=== PATIENT | female | born 1965 | race Caucasian/White ===

== ENCOUNTER → 2016-08-08 | Outpatient (CLI) | payer OTHER, BC ==
[~2016-08-08] MED LIST: ACET325T96 PO; B-COTAB18 PO; BIOT1TAB2 PO; DICL0.1S OPL; OFLO0.3S OP; OXYC-57 PO; TURM1CAP4 PO
== END | disposition home or self-care (01) ==
LOC: C.PAPS 13:52
PROVIDERS: ATTEND Obstetrics & Gynecology
DX: R87.611 Atypical squamous cells cannot exclude high grade squamous intraepithelial lesion on cytologic smear of cervix (ASC-H) (principal)

== ENCOUNTER → 2016-10-23 | Day surgery (SDC) | payer OTHER, BC ==
[~2016-10-23] VITALS: Ht 172.7 cm; Wt 61.4 kg
[~2016-10-23] MED LIST changes: +LIDOCAINE HCL 2% 2 ML VIAL (20MG/ML) ONE; +PROPOFOL IV EMULSION 10 MG/ML 20 ML VIAL IV ONE; +SODIUM CHLORIDE 0.9% 500ML 500 ML IV ONE
[2016-10-23 09:42] VITALS: Ht 172.7 cm; Wt 61.4 kg
--- NOTE | 2016-10-23 10:16 | Endo History and Physical ---
History & Physical Date of Service: Oct 23, 2016. Chief Complaint: screening Referring Physician: Dr. Cordoba History of Present Illness 51 yo CF who presents for screening colonoscopy. Past Surgical History Hx Cardiac Surgery: No Hx Internal Defibrillator: No Hx Pacemaker: No Hx Abdominal Surgery: Yes (CONIZATION) Hx of Implantable Prosthesis: No Hx Post-Op Nausea and Vomiting: Yes (REQUESTS TO BE GIVEN PHENERGAN) Hx Cancer Surgery: No Hx Thoracic Surgery: No Hx Orthopedic: Yes (RT WRIST REPAIR) Hx Urinary Tract Surgery: No Family History Colon CA, Polyp Social History Smoking Status: Never Smoker Hx Substance Use: No Hx Alcohol Use: No Allergies Coded Allergies: Codeine (Verified Adverse Reaction, Intermediate, GI SYMPTOMS, 10/23/16) Current Medications Reported Home Medications Medications Dose Route/Sig Max Daily Dose Days Date Category Biotin 5 Mg Tab 1 Tab PO QPM 10/11/16 Reported Turmeric (Turmeric (Curcuma Longa)) 500 Mg Cap 1 Cap PO QPM 10/11/16 Reported Vitamin B Complex (B-Complex Vitamins) 1 Tab Tab 1 Tab PO QPM 10/11/16 Reported Vital Signs Weight (Kilograms): 61.36 Height (Feet): 5 Height (Inches): 8 Date Time Temp Pulse Resp B/P (MAP) Pulse Ox O2 Delivery O2 Flow Rate FiO2 10/23/16 09:52 36.7 84 20 117/83 (94) 100 Room Air Physical Exam General Appearance: WD/WN, no apparent distress Respiratory/Chest: Auscultation: breath sounds normal Cardiovascular: Heart Auscultation: RRR Abdomen: Bowel Sounds: normal Inspection & Palpation: soft, non-distended, no tenderness, guarding & rebound Assessment and Plan Assessment: 51 yo CF who presents for screening colonoscopy. Plan: Proceed with colonoscopy.
--- NOTE | 2016-10-23 10:43 | Discharge Instructions ---
Endoscopy Patient Instructions Date / Procedure(s) Performed Oct 23, 2016. Colonoscopy Allergy Information Coded Allergies: Codeine (Verified Adverse Reaction, Intermediate, GI SYMPTOMS, 10/23/16) Discharge Date / Findings Oct 23, 2016. Rectal polyp Internal hemorrhoids Medication Instructions Reported Home Medications Medications Dose Route/Sig Max Daily Dose Days Date Category Biotin 5 Mg Tab 1 Tab PO QPM 10/11/16 Reported Turmeric (Turmeric (Curcuma Longa)) 500 Mg Cap 1 Cap PO QPM 10/11/16 Reported Vitamin B Complex (B-Complex Vitamins) 1 Tab Tab 1 Tab PO QPM 10/11/16 Reported Provider Instructions Activity Restrictions - No exercising or heavy lifting for 24 hours. - Do not drink alcohol the day of the procedure. - Do not drive a car or operate machinery until the day after the procedure. - Do not make any important decisions or sign important papers in 24 hours after the procedure. Following Day: - Return to full activity which may include returning to work/school. Diet Start your diet with liquids and light foods (jello, soup, juice, toast). Then eat your usual diet if not nauseated. Treatment For Common After Affects For mild abdominal pain, bloating, or excessive gas: - Rest - Eat lightly - Lie on right side Follow-Up Information Follow-up with Dr. Cordoba as scheduled Anesthesia Information What You Should Know You have had a procedure that required some medicine to reduce anxiety and discomfort. This treatment is called moderate sedation. After receiving the treatment, you may be sleepy, but you will be able to breathe on your own. The effects of the treatment may last for several hours. Follow these instructions along with Activity/Diet recommendations noted above: * Do NOT do anything where dizziness or clumsiness would be dangerous. * Rest quietly at home today, then you can be up and about tomorrow. * Have a responsible person stay with you the rest of today. * You may have had an I.V. today. If so, you may take the dressing off later today. Recommendations Call your doctor if: * Trouble breathing * Continuous vomiting for more than 24 hours * Temperature above 101 degrees * Severe abdominal pain or bloating * Pain not relieved by pain medicine ordered * There is increased drainage or redness from any incision * A large amount of rectal bleeding greater than 2-3 tablespoons. (If you had a polyp/s removed or have hemorrhoids, a small amount of blood - from the rectum is to be expected.) * You have any unanswered questions or concerns. IN THE EVENT OF A SERIOUS EMERGENCY, GO TO THE NEAREST EMERGENCY ROOM Your discharge instructions were prepared by provider Miquel Alexander. Patient Instructions Signature Page Dayna Norris Patient (or Guardian) Signature/Date: I have read and understand the instructions given to me by my caregivers. Caregiver/RN/Doctor Signature/Date: The above-named patient and/or guardian has received patient instructions on this date. + Original Patient Signature Page (only) stays with chart. Please make copy for patient.
--- NOTE | 2016-10-23 10:55 | GI REPORT ---
Procedure Date: 10/23/2016 9:56 AM Procedure: Colonoscopy Indications: Screening for colorectal malignant neoplasm Medicines: Monitored Anesthesia Care Complications: No immediate complications. Estimated Blood Loss: Estimated blood loss: none. Procedure: Pre-Anesthesia Assessment: - Prior to the procedure, a History and Physical was performed, and patient medications and allergies were reviewed. The patient's tolerance of previous anesthesia was also reviewed. The risks and benefits of the procedure and the sedation options and risks were discussed with the patient. All questions were answered, and informed consent was obtained. Prior Anticoagulants: The patient has taken no previous anticoagulant or antiplatelet agents. ASA Grade Assessment: II - A patient with mild systemic disease. After reviewing the risks and benefits, the patient was deemed in satisfactory condition to undergo the procedure. After I obtained informed consent, the scope was passed under direct vision. Throughout the procedure, the patient's blood pressure, pulse, and oxygen saturations were monitored continuously. The scope was introduced through the anus and advanced to the terminal ileum. The colonoscopy was performed without difficulty. The patient tolerated the procedure well. The quality of the bowel preparation was good. The terminal ileum, ileocecal valve, appendiceal orifice, and rectum were photographed. Findings: A 10 mm polyp was found in the rectum. The polyp was sessile. The polyp was removed with a hot snare. Resection and retrieval were complete. Non-bleeding internal hemorrhoids were found during retroflexion. The hemorrhoids were small. Impression: - One 10 mm polyp in the rectum, removed with a hot snare. Resected and retrieved. - Non-bleeding internal hemorrhoids. Recommendation: - Resume previous diet. - Continue present medications. - Repeat colonoscopy for surveillance based on pathology results. - Return to primary care physician as previously scheduled. Miquel Alexander DO 10/23/2016 10:54:56 AM This report has been signed electronically. Note Initiated On: 10/23/2016 9:56 AM I attest to the content of the Intraoperative Record and orders documented therein, exceptions below
--- NOTE | 2016-10-23 11:13 | Anesthesiology Progress Note ---
Anesthesia Post Op Note Date & Time Oct 23, 2016 at 11:12 Vital Signs Pain Intensity: 0 Vital Signs Past 12 Hours Date Time Temp Pulse Resp B/P (MAP) Pulse Ox O2 Delivery O2 Flow Rate FiO2 10/23/16 11:02 70 20 112/80 (91) 100 Room Air 10/23/16 10:47 73 20 106/71 (83) 97 Room Air 10/23/16 09:52 36.7 84 20 117/83 (94) 100 Room Air Notes Mental Status: alert / awake / arousable, participated in evaluation Pt Amnestic to Procedure: Yes Nausea / Vomiting: adequately controlled Pain: adequately controlled Airway Patency, RR, SpO2: stable & adequate BP & HR: stable & adequate Hydration State: stable & adequate Anesthetic Complications: no major complications apparent
[2016-10-23 11:17] VITALS: BP 110/84; PULSE 76; O2SAT 100
== END | disposition home or self-care (01) ==
LOC: C.GI 08:40
PROVIDERS: ATTEND Internal Medicine
DX: Z12.11 Encounter for screening for malignant neoplasm of colon (principal); D12.8 Benign neoplasm of rectum; K64.8 Other hemorrhoids; Z80.0 Family history of malignant neoplasm of digestive organs

== ENCOUNTER → 2016-10-26 | Outpatient (CLI) | payer OTHER, BC ==
[~2016-10-26] MED LIST changes: -LIDOCAINE HCL 2% 2 ML VIAL (20MG/ML) ONE; -PROPOFOL IV EMULSION 10 MG/ML 20 ML VIAL IV ONE; -SODIUM CHLORIDE 0.9% 500ML 500 ML IV ONE
== END | disposition home or self-care (01) ==
LOC: C.PATHSPEC 13:11
PROVIDERS: ATTEND Obstetrics & Gynecology
DX: R87.613 High grade squamous intraepithelial lesion on cytologic smear of cervix (HGSIL) (principal)

== ENCOUNTER 2016-11-10 05:16 | Observation (INO) | payer OTHER, BC ==
--- NOTE | 2016-10-26 11:53 | PAT Medication Instructions ---
Service Date Oct 26, 2016. Current Home Medication List Acetaminophen Tab (Tylenol), 325-650 MG PO PRN B-Complex Vitamins (Vitamin B Complex), 1 TAB PO QPM Biotin (Biotin), 1 TAB PO QPM Turmeric (Curcuma Longa) (Turmeric), 1 CAP PO QPM Medication Instructions For Your Scheduled Surgery - Hold the following medications 2 weeks prior to surgery: Biotin (Biotin), 1 TAB PO QPM Turmeric (Curcuma Longa) (Turmeric), 1 CAP PO QPM - Take the following medications the morning of surgery with a sip of water OTHERWISE NOTHING TO EAT OR DRINK AFTER MIDNIGHT: Acetaminophen Tab (Tylenol), 325-650 MG PO PRN (may take if needed up to 4 hours prior to surgery) - Take the following medications as scheduled the night before surgery: B-Complex Vitamins (Vitamin B Complex), 1 TAB PO QPM Acetaminophen Tab (Tylenol), 325-650 MG PO PRN If you have any questions please call us at [phone] or [phone] or [phone]
[2016-10-26 12:29] LABS: BASO % 0.3 %; BASO ABS # 0.02 K/uL (0-0.2); COMPLETE YES; EOS % 1.3 %; HEMATOCRIT 37.5 % (37-47); IG% 0.3 %; LYMPH % 24.7 %; LYMPH ABS # 1.51 K/uL (1.2-3.4); MEAN CELL VOLUME 86.2 fL (80-100); MEAN CORPUSCULAR HEMOGLOBIN 29.7 pg (25-34); MEAN CORPUSCULAR HGB CONC 34.4 g/dl (32-36); MEAN PLATELET VOLUME 9.5 fL (7.4-10.4); MONO % 6.2 %; NEUT % 67.2 %; PLATELET COUNT 267 K/uL (130-400); RED BLOOD COUNT 4.35 M/uL (4.2-5.4); WHITE BLOOD COUNT 6.12 K/uL (4.8-10.8)
[2016-11-10] VITALS (8 sets, daily range): BP systolic 122–149; BP diastolic 78–84; PULSE 60–78; TEMP 36.4–36.8; O2SAT 97–100; Ht 172.7 cm; Wt 61.9 kg
[~2016-11-10] VITALS: Ht 172.7 cm; Wt 61.9 kg
[~2016-11-10 05:16] MED LIST changes: -DICL0.1S OPL; -OFLO0.3S OP; -OXYC-57 PO
[2016-11-10] MEDS ORDERED: CEFAZOLIN 2000 MG/60 ML D5W 50 ML IV SCH (06:00)
[2016-11-10] MEDS ORDERED: LACTATED RINGER'S 1000ML 1,000 ML IV SCH ×3 (06:00→09:30)
[2016-11-10] MEDS ORDERED: SCOPOLAMINE 1.5 MG TDSY TD ONE ×2 (06:48→07:00)
[2016-11-10] MEDS ORDERED: METHYLENE BLUE 0.5% 10 ML VIAL ONE (06:57)
[2016-11-10] MEDS ORDERED: BUPIVACAINE 0.5 % 5 MG/1 ML MPF 30ML VIAL ONE (06:57)
[2016-11-10] MEDS ORDERED: ONDANSETRON INJ 2 MG/ML 2 ML VIAL IV PRN ×2 (07:00→09:30)
[2016-11-10] MEDS ORDERED: EpHEDrine SULFATE INJ 50 MG/ML AMP IV PRN (07:00)
[2016-11-10] MEDS ORDERED: FENTANYL CITRATE INJ 50 MCG/1 ML 2 ML VIAL IV PRN (07:00)
[2016-11-10] MEDS ORDERED: ATROPINE SULFATE 0.1 MG/ML 5ML SYR IV PRN (07:00)
[2016-11-10] MEDS ORDERED: DEXAMETHASONE SOD INJ 4 MG/ML VIAL ONE (07:12)
[2016-11-10] MEDS ORDERED: PHENYLEPHRINE HCL INJ 10 MG/ML VIAL ONE (07:12)
[2016-11-10] MEDS ORDERED: PROPOFOL IV EMULSION 10 MG/ML 20 ML VIAL IV ONE (07:12)
[2016-11-10] MEDS ORDERED: ROCURONIUM BROMIDE 10 MG/ML 5 ML VIAL IV ONE (07:12)
[2016-11-10] MEDS ORDERED: NEOSTIGMINE METHYLSULFATE 5 MG/5 ML SYR ONE (07:12)
[2016-11-10] MEDS ORDERED: GLYCOPYRROLATE INJ 0.2 MG/ML VIAL ONE (07:12)
[2016-11-10] MEDS ORDERED: EpHEDrine SULFATE INJ 50 MG/ML AMP ONE (07:12)
[2016-11-10] MEDS ORDERED: ONDANSETRON INJ 2 MG/ML 2 ML VIAL ONE ×2 (07:12→09:09)
[2016-11-10] MEDS ORDERED: SUCCINYLCHOLINE CHLORIDE 20 MG/ML 10 ML VIAL IV ONE (07:12)
[2016-11-10] MEDS ORDERED: LIDOCAINE HCL 2% 2 ML VIAL (20MG/ML) ONE (07:12)
[2016-11-10] MEDS ORDERED: FENTANYL CITRATE INJ 50 MCG/1 ML 2 ML VIAL ONE ×2 (07:13→09:00)
[2016-11-10] MEDS ORDERED: MIDAZOLAM HCL 1 MG/ML 2ML VIAL ONE (07:13)
--- NOTE | 2016-11-10 07:16 | History & Physical Bridge Note ---
H&P Re-Evaluation Bridge Note: I have examined the patient, reviewed the History & Physical and in the interval since the performance of the History & Physical I have noted the following changes of clinical significance: Patient has considered her options and wants removal of both ovaries as well. She does not want to initiate any ERT right away, she wants to see how her symptoms go.
[2016-11-10] MEDS ORDERED: HYDROmorphone INJ 2 MG/ML SYR/VIAL ONE ×2 (07:59→10:17)
[2016-11-10] MEDS ORDERED: KETOROLAC TROMETHAMINE 30 MG/ML VIAL IV. PRN (09:30)
[2016-11-10] MEDS ORDERED: IBUPROFEN 600 MG TAB PO PRN (09:30)
[2016-11-10] MEDS ORDERED: SIMETHICONE 80 MG CHEW PO PRN (09:30)
[2016-11-10] MEDS ORDERED: OXYCODONE/ACETAMINOPHEN 5-325 TAB PO PRN ×2 (09:30)
[2016-11-10] MEDS ORDERED: ACETAMINOPHEN 325 MG TAB PO PRN (09:30)
[2016-11-10] MEDS ORDERED: OXYC-57 PO (09:32)
--- NOTE | 2016-11-10 09:32 | [facility] Post Operative Brief Note ---
Immediate Operative Summary Operative Date Nov 10, 2016. 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 Shaw (Henry Grijalva MD) Labor Delivery Rn Surgeon(s) Dr. Colón (Henry Grijalva MD) Estimated Blood Loss 5 cc (Henry Grijalva MD) Findings Normal bilateral fallopian tubes and ovaries bilaterally, uterus with subserosal fibroid, normal bladder and ureteral jets (Henry Grijalva MD) cystoscopy findings with normal bladder filling and normal ureteral jets. (Tala Shaw M.D.(DIRECTOR OUTPATIENT SERVICES/OB)) Fluids (cc crystalloids) 1100 ml (Henry Grijalva MD) Specimens A: Uterus, Cervix, Bilateral fallopian tubes, Bilateral ovaries (Henry Grijalva MD) Drains Had faria placed which drained 500ml of clear urine (Henry Grijalva MD) Anesthesia General Anesthesia (Henry Grijalva MD) Complication(s) None (Henry Grijalva MD) Disposition PCU (Henry Grijalva MD) Recovery Room / PACU (Tala Shaw M.D.(DIRECTOR OUTPATIENT SERVICES/OB))
--- NOTE | 2016-11-10 09:34 | Discharge Instructions ---
Discharge Instructions Date of Service Nov 10, 2016. Admission Reason for Admission: Pap Smear Abnormality; Severe Dysplasia of Cervix Discharge Discharge Diagnosis / Problem: after surgery Discharge Goals Goal(s): Routine recovery after surgery Activity Recommendations Activity Limitations: as noted below . Instructions / Follow-Up Instructions / Follow-Up POST OPERATIVE: BOWEL FUNCTION/MEDICATIONS: 1. Constipation pain and discomfort are the most common complaints 5-7 days after surgery. Points 2-6 address the things that can help. 2. Chewing gum can help stimulate the gut and help improve digestion and motility. 3. Milk of Magnesia 1-2 times per day until return of bowel function. 4. Colace is a stool softener that helps. Taking this 2-3 times per day until bowel function returns to normal is highly recommended. 5. Dulcolax is a laxative that may be used if several days have passed without a bowel movement. Alternatively Miralax may be used daily instead. 6. Drink plenty of fluids as this will also reduce constipation. 7. Narcotic pain medications will be prescribed by your physician. They are safe to use and we encourage you to use them. If you are not allergic, ibuprofen will also be prescribed. Many patients will be able to transition off of the narcotic medications to ibuprofen by postoperative day 3. ACTIVITY RECOMMENDATIONS: 1. Get plenty of rest and listen to your body. If you are tired, take a nap. 2. You may shower, but do not take a tub bath until you see your doctor at the 2 week post operative visit. 3. Absolutely NO intercourse and nothing in the vagina until you are examined by your doctor at the 8 week visit. At that visit it will be determined when such activities can be resumed. This can range from 6-12 weeks after your surgery depending on healing time. 4. The main physical activity in the first week should be walking. By the second week you can slowly increase activity. There are no limits on walking up and down stairs. 5. Do not lift more than 5-10 lbs for 4 weeks. Remember the "one-handed rule", i.e. if you can lift something with only one hand it's likely okay. 6. Minimize boilermaker like vacuuming and exercising for 4 weeks. "Overdoing it" can lead to incisions not healing, pain and vaginal bleeding , so again, listen to your body. 7. Driving can be resumed when you feel able. Do not drive within 24 hours of taking a narcotic medication. EXPECTATIONS: 1. Vaginal spotting, bleeding and discharge are common after surgery. There may even be an odor to the discharge which is often related to sutures used in the vagina. If you experience heavy vaginal bleeding, call the office number day or night [phone]. 2. Bladder discomfort is common after surgery from the catheter. This usually resolves in 1-2 weeks. 3. By the end of the 3rd or 4th week you should be feeling much better. It may take up to 6 weeks for your energy levels to return to normal. 4. Narcotic medications have side effects such as: dizziness, headache, nausea and/or vomiting. If you suspect your pain medication is causing problems, call our office and we may be able to prescribe an alternate medication. 5. The skin incisions are often covered with a liquid bandage. This will gradually peel off over time. CALL THE OFFICE IF YOU HAVE ANY OF THE FOLLOWIN. Temperature of 101 degrees or higher. 2. Severe abdominal or pelvic pain not relieved by pain medication. 3. Persistent nausea or vomiting. 4. Increased pain with urination or difficulty urinating. 5. Bright red bleeding that soaks more than 1 pad per hour. CONTACT PHONE NUMBERS: Main Office: [phone] Surgical Nurse: [phone] extension [phone] FOLLOW-UP: Post-Operative Appointments: * Individual instructions will have been given about the timing of your first examination, but this is usually at the end of the second week home. * You will need to call the office at soon after discharge to make the appointment for your post-op check-up if it has not already been scheduled. * Additional information regarding activity, sexual intercourse and when to return to work will be given at this appointment. WE WISH YOU A SPEEDY RECOVERY! Current Hospital Diet Patient's current hospital diet: Discharge Diet Recommended Diet: Regular Diet Procedures Procedures Performed: Robot Assisted Total Laparoscopic Hysterectomy, Bilateral Salpingo Oophorectomy , Cystoscopy Pending Studies Studies pending at discharge: yes List of pending studies: pathology Medical Emergencies . Who to Call and When: Medical Emergencies: If at any time you feel your situation is an emergency, please call 911 immediately. . Non-Emergent Contact Non-Emergency issues call your: Municipal Engineer . . "Provider Documentation" section prepared by Tala Shaw. . VTE Core Measure Inpt VTE Proph given/why not?: [facility]CD[place] Drug Monitoring Program Search Results: patient reviewed within database, no issues identified
--- NOTE | 2016-11-10 10:10 | Anesthesiology Progress Note ---
Anesthesia Post Op Note Date & Time Nov 10, 2016 at 10:09 Vital Signs Pain Intensity: 0 Vital Signs Past 12 Hours Date Time Temp Pulse Resp B/P (MAP) Pulse Ox O2 Delivery O2 Flow Rate FiO2 11/10/16 10:01 128/83 11/10/16 10:00 70 13 100 11/10/16 10:00 63 16 128/83 100 Room Air 11/10/16 10:00 69 13 11/10/16 09:56 128/87 11/10/16 09:55 70 14 11/10/16 09:55 69 14 100 11/10/16 09:51 122/80 11/10/16 09:50 68 13 11/10/16 09:50 65 16 122/80 100 Oxymask 10 11/10/16 09:50 69 13 100 11/10/16 09:46 123/77 11/10/16 09:45 72 17 11/10/16 09:45 73 17 100 11/10/16 09:41 122/80 11/10/16 09:40 69 12 11/10/16 09:40 69 12 100 11/10/16 09:40 69 16 122/80 100 Oxymask 10 11/10/16 09:36 115/81 11/10/16 09:35 80 17 11/10/16 09:35 81 17 100 11/10/16 09:30 36.1 70 16 115/81 98 Oxymask 10 11/10/16 09:30 87 11/10/16 09:30 87 100 11/10/16 05:43 36.4 71 16 138/82 (100) 100 Room Air Notes Mental Status: alert / awake / arousable, participated in evaluation Pt Amnestic to Procedure: Yes Nausea / Vomiting: adequately controlled Pain: adequately controlled Airway Patency, RR, SpO2: stable & adequate BP & HR: stable & adequate Hydration State: stable & adequate Anesthetic Complications: no major complications apparent
--- NOTE | 2016-11-10 10:29 | OPERATIVE REPORT ---
DATE OF OPERATION: 11/10/2016 PREOPERATIVE DIAGNOSES: 1. Severe cervical dysplasia. 2. Pap smear with high grade squamous intraepithelial lesion. POSTOPERATIVE DIAGNOSES: Same. PROCEDURES: 1. Total laparoscopic hysterectomy. 2. Bilateral salpingo-oophorectomy. 3. Cystoscopy. 4. Robotic assistance. SURGEON: Tala Shaw MD HEAD USHER: Ramón Colón MD ANESTHESIA: General. IV FLUID: 1100 mL. ESTIMATED BLOOD LOSS: 5 mL. URINE OUTPUT: 500 mL. FINDINGS: Uterus mobile in the pelvis, but with a approximately 4-cm fundal right-sided fibroid. Normal ovaries bilaterally and normal fallopian tubes. The ureter seen coursing well below the planned operative sites. The cystoscopy findings included normal bladder filling and normal ureteral jets. INDICATIONS: She is a 51-year-old with a history of abnormal Pap smear to include possible squamous cancer. 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 Unfortunately, her followup Pap smears continue to include high grade lesion. She was counseled about her treatment options and was sure she desired removal of the uterus. [facility] was curbsided for consult re: patient management. They recommended an ECC and if no evidence of invasive cancer, ok for a simple hysterectomy. An endocervical curettage was performed and did not show any evidence of invasive disease. She was counseled about options to include more conservative management and desired a total laparoscopic hysterectomy with bilateral salpingo-oophorectomy. Please see the history and physical for full details. DESCRIPTION OF PROCEDURE: The patient was taken to the operating room and identified. After adequate general anesthesia was obtained, she was placed in dorsal lithotomy position and prepped and draped in the usual sterile fashion. A Wang catheter was placed. Attention was turned to the patient's vagina, where a weighted speculum and anterior retractor were placed to visualize the cervix. The cervix was grasped on it's anterior lip with an Allis clamp. A single interrupted suture of 0 Vicryl was placed at the 3 o'clock position. The cervix was sequentially dilated using Hegar dilators to 23. The uterus sounded to 8 cm. The VCare uterine manipulator was gently placed through the cervical os into the uterine cavity and a balloon was inflated. The cup was tied down and stabilizing device was placed in the usual fashion. At this point, all vaginal instruments were removed. Attention was turned to the patient's abdomen, where an infraumbilical skin incision was made with the scalpel. The Veress needle was placed intraperitoneally with an opening pressure of 6 mmHg. A CO2 pneumoperitoneum was created. The 12-mm optical trocar was then placed under direct visualization into the peritoneal cavity. The pelvis was inspected with the findings as noted above. Two da Zachariah trocar sites, left and right of the midline were placed by first making skin incisions and then placing under direct visualization da Zachariah trocars. The patient had been placed in steep Trendelenburg. Using a blunt probe, the bowel was teased away from the planned operative sites. At this point, the laparoscopic camera removed. The da Zachariah robot was brought to the patient's bedside. The instrument arms were connected to the appropriate trocars. The camera was introduced. The monopolar cheryl and the fenestrated bipolar cautery were brought into the field under direct visualization. The surgeon then went to the console. Using uterine manipulation from below, the right infundibulopelvic ligament was identified. The ureter was seen well below the planned operative site on the right side. The bipolar cautery was then used to cauterize the ligament and it was transected using the monopolar cheryl. Remaining fallopian tube and the broad ligament attachments were taken from this side using cautery and monopolar cheryl. Then the anterior and posterior leaves of the broad ligament were opened up. The bladder flap was begun from this side across the midline. The uterine artery pedicle was skeletonized. The uterine artery pedicle was then coagulated. Attention was then turned to the patient's left infundibulopelvic ligament and it was obscured by the sigmoid colon. For that reason, the decision was made to proceed by taking down the fallopian tube, round ligament uterine ovarian complex with cautery and then with the monopolar cheryl. This was to the level of the broad ligament, where the anterior and posterior leaves of the broad ligament were opened up into and the bladder flap was connected from the left side towards the right side. The bladder had been pushed well away from the planned operative field. The uterine artery pedicle was skeletonized on this side. It was then coagulated and transected. The cardinal ligament attachments were further taken down, coagulated and transected. This allowed for free mobilization at the planned colpotomy site. Attention was returned to the right uterine artery pedicles, which were re-coagulated and transected and the cardinal ligament attachments were coagulated and transected to completely mobilize the planned colpotomy site on this side. It was at this time that the colpotomy was begun. It was brought from the posterior cervix around circumferentially. The specimen was completely mobilized. It was brought out through the vagina. Sponge was placed into the vagina to allow for maintenance of the pneumoperitoneum. The left ovary and fallopian tube complex was reidentified. The ureter was seen coursing well below the planned operative site. The infundibulopelvic ligament was identified. There were some filmy adhesions that had to be taken down to completely visualize the infundibulopelvic ligament. It was then coagulated and transected in the usual fashion and the left ovary and tube was removed from the vagina as well. The instrument arm #1 was replaced with a large needle seasonal delivery driver. The 2-0 V-Loc 90 suture was passed vaginally. The cuff was then closed in the usual fashion using the suture material and back sutures were placed. The large needle seasonal delivery driver was then removed. Methylene blue IV had been given. This suture material was then cut and the needle was removed from the abdomen. The suction die maker stamping was used to irrigate the pelvis across the suture line. There were no active bleeding sites. A CO2 pneumoperitoneum was decompressed and there were still no active bleeding sites. At this point, the procedure was terminated. The CO2 gas was allowed to escape from the patient's abdomen. The robot was undocked and moved away from the patient's bedside. The trocars were then removed. The cystoscopy was performed with the findings as noted above. A new Wang catheter was placed. The skin incisions were injected with Marcaine. The infraumbilical incision was reapproximated subcutaneously with a single interrupted suture of 0 Vicryl. All skin incisions were closed with 4-0 Vicryl in a subcuticular fashion and Dermabond was applied. The patient was returned to supine position. She was awoken from anesthesia and transferred to recovery room in stable condition. All sponge, lap and needle counts were correct x2. I attest to the content of the Intraoperative Record and any orders documented therein. Any exceptions are noted below. MTDD
[2016-11-10] MEDS ORDERED: IV FLUIDS COMPLETED PRN (11:00)
[2016-11-10] MEDS ORDERED: OFLO0.3S OP (16:01)
[2016-11-10] MEDS ORDERED: DICL0.1S OPL (16:01)
--- NOTE | 2016-11-10 16:11 | Progress Note ---
Progress Note Date of Service Nov 10, 2016. Progress Note Pt s/p santiago partida this a.m, now with complaint of foreign body sensation and pain on right eye. Pt seen and stated that she had similar issue in the past. Discussed with patient and Dr. Shaw treatment for the eye. Voltaren and Ofloxacin eye drops prescribed for up to 5 days. Pt made aware that if eye gets worse with symptoms such as edema, erythema and foul discharge, she will need to see an news wire photo operator.Pt agrees with plan.
[2016-11-11] MEDS ORDERED: CHECK SCOPOLAMINE PATCH PLACEMENT SCH (16:00)
--- NOTE | 2016-11-12 12:16 | Discharge Summary ---
Discharge Summary Date of Service November 10, 2016. Date of discharge 11/10/16 Discharge Summary Admission diagnoses: #1 severe cervical dysplasia #2 Pap smear with high-grade squamous intraepithelial lesion Discharge diagnoses: Same. Possible corneal abrasion right eye Procedures: #1 total laparoscopic hysterectomy #2 bilateral salpingo- oophorectomy #3 cystoscopy #4 robotic assistance Brief history and Hospital course: 51-year-old with a history of severe cervical dysplasia and persistent abnormalities despite cold knife conization who desired definitive hysterectomy. She also desired bilateral removal of ovaries and fallopian tubes. She underwent the above-stated procedures without incident. Her estimated blood loss was 5 cc. Her postop recovery was uncomplicated. She was tolerating a regular diet and voiding spontaneously without difficulty and ambulating without difficulty and her pain was well controlled on oral medications and was stable for discharge to home. She did have an issue with possible abrasion of her cornea on the right eye and was seen by anesthesia who discharged her with treatment. She was given appropriate discharge instructions and pain medication prescriptions for her surgery and was instructed to follow-up in 2 weeks' time. Her limitations were reviewed. She will follow-up in 2 weeks.
== END 2016-11-10 17:25 | disposition home or self-care (01) ==
LOC: C.ACU 05:16 → C.MS4N 06:00 → ENRESERV 10:07
PROVIDERS: ADMIT Obstetrics & Gynecology; ATTEND Obstetrics & Gynecology
DX: N87.9 Dysplasia of cervix uteri, unspecified (principal); D25.9 Leiomyoma of uterus, unspecified; N84.0 Polyp of corpus uteri; N80.0 Endometriosis of uterus
CPT/HCPCS: 58571; S2900

== ENCOUNTER → 2017-01-18 | Outpatient (CLI) | payer OTHER, BC ==
[~2017-01-18] MED LIST changes: +DICL0.1S OPL; +OXYC-57 PO
[2017-01-18 13:12] LABS: CHOLESTEROL/HDL RATIO 3.5
== END | disposition home or self-care (01) ==
LOC: C.LABMFLN 06:46
PROVIDERS: ATTEND Family Medicine
DX: Z13.220 Encounter for screening for lipoid disorders (principal); Z13.1 Encounter for screening for diabetes mellitus